=== PATIENT | male | born 1980 | race Caucasian/White ===

== ENCOUNTER 2018-08-16 18:43 | Emergency (ER) | payer SELFPAY ==
[~2018-08-16] VITALS: Wt 68.0 kg
[~2018-08-16 18:43] MED LIST: NAPROSYN500 MG PO; NKHM; PARAFON FORTE500 MG PO; PEN-VEE K500 MG PO; PEN-VK500 MG PO; TRAMADOL HCL50 MG PO; ULTRAM50 MG PO
[2018-08-16] MEDS ORDERED: IBU800 MG PO (19:40)
[2018-08-16] MEDS ORDERED: PENICILLIN VK500 MG PO (19:40)
== END 2018-08-16 19:02 | disposition home or self-care (01) ==
LOC: ED 18:43
DX: K04.7 Periapical abscess without sinus (principal); M62.830 Muscle spasm of back; R22.2 Localized swelling, mass and lump, trunk; F17.200 Nicotine dependence, unspecified, uncomplicated

== ENCOUNTER → 2019-05-27 | Outpatient (CLI) | payer OTHER ==
[~2019-05-27] MED LIST changes: +IBU800 MG PO; +PENICILLIN VK500 MG PO
== END | disposition home or self-care (01) ==
LOC: US 03-25 09:30
DX: K76.0 Fatty (change of) liver, not elsewhere classified (principal)